=== PATIENT | male | born 1955 | race Caucasian/White ===

== ENCOUNTER 2022-02-13 12:19 | Emergency (ER) | payer BC, MEDICARE ==
[~2022-02-13] VITALS: Ht 152.4 cm; Wt 100.0 kg
[2022-02-13] MEDS ORDERED: ALBU8.5H INH (12:32)
[2022-02-13] MEDS ORDERED: OMEP-173 PO (12:32)
[2022-02-13] MEDS ORDERED: ZOCO20TA PO (12:32)
[2022-02-13] MEDS ORDERED: FLON1SPR NARES (12:32)
[2022-02-13] MEDS ORDERED: FLUORESCEIN OPHTH 1 MG STRIP OS ONE (12:50)
[2022-02-13] MEDS ORDERED: PROPARACAINE 0.5% OPHTH SOL 15ML OS ONE (12:50)
[2022-02-13 14:26] VITALS: BP 152/80
== END 2022-02-13 14:48 | disposition home or self-care (01) ==
LOC: M ED 12:19
DX: H40.052 Ocular hypertension, left eye (principal); H11.002 Unspecified pterygium of left eye; E78.5 Hyperlipidemia, unspecified; K21.9 Gastro-esophageal reflux disease without esophagitis; Z87.891 Personal history of nicotine dependence; Z88.0 Allergy status to penicillin